=== PATIENT | male | born 1995 | race Caucasian/White ===

== ENCOUNTER 2023-06-28 07:08 | Emergency (ER) | payer SELFPAY ==
--- NOTE | ~2023-06-28 | CT_ITS ---
EXAMINATION: CT abdomen pelvis w con DATE: 06/28/2023 10:30 INDICATION: Left-sided abdominal pain TECHNIQUE: Computed tomography (CT) of the abdomen and pelvis was performed without intravenous contr ast. The dose-length product was 795.16 mGy-cm. Automated exposure control and iterative reconstructi on technique were employed. COMPARISON: None. FINDINGS: Lung bases are unremarkable. Heart size normal. No significant pleural or pericardial effus ion. There is a 2 mm left UVJ stone with moderate left hydronephrosis. There are additional nonobstru cting left renal stones. The liver, spleen, pancreas, adrenal glands and right kidney are unremarkable. Nonobstructive bowel g as pattern. No abnormal pelvic masses or fluid collections. No significant vascular abnormality. No l ymphadenopathy. No acute osseous abnormality. IMPRESSION: 1. 2 mm left UVJ stone with moderate hydronephrosis. 2: Nonobstructing left nephrolithiasis. Reviewed, dictated and finalized at location A. [employer]
[2023-06-28 07:13] VITALS: BP 141/82; PULSE 77; RESP 18; TEMP 36.7; O2SAT 100
[2023-06-28 07:35] LABS: Basophils Percent Auto 0.2 % (0.2-1.2); Eosinophils Absolute Auto 0.1 K/mm3 (0-0.3); Eosinophils Percent Auto 0.7 % (0-4.4); Hematocrit 44.6 % (42.0-52.0); Hemoglobin 14.7 g/dL (14.0-18.0); Immature Granulocyte Absolute 0.01 K/mm3 (0.00-0.031); Immature Granulocyte Percent A 0.1 % (0-0.5); Lymphocytes Absolute Auto 1.56 K/mm3 (0.9-3.2); Lymphocytes Percent Auto 17.6 % (18.3-44.2); Mean Corpuscular Hemoglobin 30.1 pg (26-34); Mean Corpuscular Volume 91.2 fl (80-100); Monocytes Absolute Auto 0.4 K/mm3 (0.1-0.6); Monocytes Percent Auto 4.6 % (2.6-8.5); Neutrophils Absolute Auto 6.8 K/mm3 (1.3-6.7); Neutrophils Percent Auto 76.8 % (45.5-73.1); Platelet Count Result 228 k/mm3 (150-375); Red Blood Count 4.89 M/mm3 (4.6-6.20); Red Cell Distribution Width 12.8 % (11.5-14.5); White Blood Count 8.9 K/mm3 (4.5-10.0)
[2023-06-28 07:48] LABS: Add Urine Microscopic? YES; Appearance Urine Cloudy (Clear); Bacteria Urine None Seen /hpf; Bilirubin Urine Negative (Negative); Blood Urine 3+ (Negative); Color Urine Dark Yellow (Yellow); Glucose Urine UA Negative (Negative); Ketones Urine Negative (Negative); Leukocyte Esterase Ur Negative LEU/UL (Negative); Mucus Urine Present /lpf; Need Manual Microscopic Reviewed; Nitrate Urine Negative (Negative); Protein Urine 1+ mg/dL (Negative); RBC Urine >100 /hpf (0-2); Specific Grav Ur 1.029 (1.001-1.035); Squamous Epithelial Cell Urine None seen /hpf (Few); WBC Urine 0-5 /hpf; pH Urine 5.5 (5.0-9.0)
[2023-06-28 08:02] LABS: Alanine Aminotransferase 18 U/L (6-50); Albumin Level 4.5 g/dL (3.5-5.1); Alkaline Phosphatase 53 U/L (38-126); Anion Gap 7 mmol/L (8-16); Aspartate Amino Transferase 17 U/L (17-59); Bilirubin,Total 0.5 mg/dL (0.2-1.3); Blood Urea Nitrogen 19 mg/dL (9-20); Calcium 9.5 mg/dL (8.4-10.2); Carbon Dioxide 24 mmol/L (22-30); Chloride 107 mmol/L (98-107); Estimated CRCL calculation 111 ml/min; Estimated Glomerular Filt Rate > 60; Glucose 113 mg/dL (65-110); Potassium 3.9 mmol/L (3.4-5.0); Sodium 138 mmol/L (137-145)
--- NOTE | 2023-06-28 09:50 | ED.ABDPAIN ---
HPI - Abdominal Pain General Chief Complaint: Abdominal Pain Stated Complaint: left flank pain Time Seen by Provider: 06/28/23 09:44 Source: patient Mode of arrival: ambulatory Limitations: no limitations History of Present Illness HPI narrative: This is a 28-year-old male that presents to the emergency department for left-sided abdominal pain. Ongoing since earlier this morning. Associated with nausea and vomiting. Reports history of kidney stones and that his pain feels similar. Denies fevers, dysuria, or hematuria. Related Data Allergies Allergy/AdvReac Type Severity Reaction Status Date / Time No Known Drug Allergies Allergy Verified 11/11/11 13:35 Review of Systems Review of Systems: CONSTITUTIONAL: Denies fever GASTROINTESTINAL: Reports abdominal pain, nausea, vomiting GENITOURINARY: Denies dysuria or hematuria. All systems reviewed & are unremarkable except as noted in HPI and below PMFSH Past Medical History Medical History (Updated 06/28/23 @ 11:05 by Radha Nathan PA-C) No active medical problems Social History Social History (Updated 06/28/23 @ 09:52 by Radha Nathan PA-C) Smoking status: Current every day smoker Exam Narrative: GENERAL: Well-appearing, well-nourished, and in no acute distress. HEAD: Normocephalic, atraumatic. EYES: EOMI. CHEST: Clear to auscultation. No respiratory distress. No wheezes rales or rhonchi HEART: Regular rate and rhythm. No murmur heard. Normal peripheral pulses. ABDOMEN: Soft, nontender, nondistended, normal active bowel sounds. No CVA tenderness EXTREMITIES: Normal range of motion. No edema. SKIN: Warm, dry, no rash. NEURO: No focal deficits. Alert and oriented x3. PSYCH: Normal mood and affect Course Course Emergency Course: Patient updated on workup and agrees with plan of care Vital Signs Vital signs: Vital Signs Temperature 98.1 F 06/28/23 07:13 Pulse Rate 77 06/28/23 07:13 Respiratory Rate 18 06/28/23 07:13 Blood Pressure 141/82 H 06/28/23 07:13 Pulse Oximetry 100 06/28/23 07:13 Oxygen Delivery Room Air 06/28/23 07:13 Temperature 98.1 F 06/28/23 07:13 Pulse Rate 71 02/24/24 10:11 Respiratory Rate 14 06/28/23 10:11 Blood Pressure 134/79 06/28/23 10:11 Pulse Oximetry 100 06/28/23 10:11 Oxygen Delivery Room Air 06/28/23 07:13 MDM - Abdominal Pain MDM Narrative Medical decision making narrative: Patient presents to the emergency department for left-sided abdominal pain, history of kidney stones. He is afebrile and nontoxic appearing. His vitals are stable. Cbc without leukocytosis. Metabolic panel with normal kidney function. UA with greater than 100 red blood cells, no evidence of infection. CT abdomen pelvis shows a 2 mm left UVJ stone. Patient updated on his workup. Pain is under control. Will be discharged with Flomax, pain medication, and urine strainer. He is to follow-up with urology. He was given warnings to return to the ER Differential Diagnosis Differential diagnosis: Likely calculus of kidney, constipation and diverticulitis Lab Data Attestation: I reviewed the patient's lab results. 06/28/23 07:22 06/28/23 07:22 Labs: Lab Results 06/28/23 06/28/23 Range/Units 07:22 07:28 WBC 8.9 (4.5-10.0) K/mm3 RBC 4.89 (4.6-6.20) M/mm3 Hgb 14.7 (14.0-18.0) g/dL Hct 44.6 (42.0-52.0) % MCV 91.2 (80-100) fl MCH 30.1 (26-34) pg MCHC 33.0 (32-36) g/dl RDW 12.8 (11.5-14.5) % Plt Count 228 (150-375) k/mm3 MPV 10.0 (7.4-10.4) fl Immature Gran % (Auto) 0.1 (0-0.5) % Neut % (Auto) 76.8 H (45.5-73.1) % Lymph % (Auto) 17.6 L (18.3-44.2) % [place] % (Auto) 4.6 (2.6-8.5) % Eos % (Auto) 0.7 (0-4.4) % Baso % (Auto) 0.2 (0.2-1.2) % Lymph # (Auto) 1.56 (0.9-3.2) K/mm3 [place] # (Auto) 0.4 (0.1-0.6) K/mm3 Eos # (Auto) 0.1 (0-0.3) K/mm3 Baso # (Auto) 0.0 (0.0-0.1) K/mm3 Abs Imm
[2023-06-28 10:11] VITALS: BP 134/79; PULSE 71; RESP 14; O2SAT 100
[2023-06-28] MEDS: ONDANSETRON INJ 4 MG/2 ML VIAL IV PUSH (10:16)
[2023-06-28] MEDS: SODIUM CHLORIDE 0.9% IV 1,000 ML 999 ML IV CONT (10:16)
[2023-06-28] MEDS: MORPHINE SULFATE (*CRX) 2 MG/ML INJ IV PUSH (10:17)
--- NOTE | 2023-06-28 10:18 | PC.NURSE ---
Pt to CT via stretcher at this time
[2023-06-28 11:47] VITALS: BP 151/83; PULSE 70; RESP 13; TEMP 36.4; O2SAT 99
== END 2023-06-28 11:42 | disposition home or self-care (01) ==
PROVIDERS: Emergency Medicine; Emergency Provider Physician Assistant
DX: N13.2 Hydronephrosis with renal and ureteral calculous obstruction (principal); F17.200 Nicotine dependence, unspecified, uncomplicated; Z87.442 Personal history of urinary calculi
CPT/HCPCS: 36415; 74177; 80053; 81001; 85025; 96361; 96374; 96375; 99284; J2270; J2405; J7030; Q9967

== ENCOUNTER 2023-09-21 22:23 | Emergency (ER) | payer OTHER, SELFPAY ==
[2023-09-21 22:24] VITALS: BP 160/97; PULSE 96; RESP 16; TEMP 36.9; O2SAT 100
[2023-09-22 00:24] VITALS: BP 149/93; PULSE 84; RESP 16; O2SAT 99
--- NOTE | 2023-09-22 00:44 | ED.SKABFB ---
HPI - Skin/Abscess/Foreign Bdy General Chief complaint: Skin/Abscess/Foreign Body Stated complaint: wasp sting Time Seen by Provider: 09/22/23 00:32 Source: patient Mode of arrival: ambulatory Limitations: no limitations History of Present Illness HPI narrative: This is a 28 year old male that presents to the ER after a recent insect sting. Reports he was stung by a wasp 2 days ago. Increasing redness to the area which prompted him to be seen. Reports some itching. Denies fever, or drainage. Related Data Allergies Allergy/AdvReac Type Severity Reaction Status Date / Time No Known Drug Allergies Allergy Verified 11/11/11 13:35 Review of Systems Review of Systems: CONSTITUTIONAL: Denies fever SKIN: Reports rash and itching. All systems reviewed & are unremarkable except as noted in HPI and below PMFSH Past Medical History Medical History (Updated 09/22/23 @ 00:47 by Radha Nathan PA-C) No active medical problems Social History Social History (Updated 06/28/23 @ 09:52 by Radha Nathan PA-C) Smoking status: Current every day smoker Exam Narrative: GENERAL: Well-appearing, well-nourished, and in no acute distress. HEAD: Normocephalic, atraumatic. EYES: EOMI. NECK: Small circular area of redness to the right neck. No edema or fluctuance CHEST: No respiratory distress. Small area of redness to the right chest HEART: Regular rate EXTREMITIES: Normal range of motion. No edema. SKIN: Warm, dry, no rash. NEURO: No focal deficits. Alert and oriented x3. PSYCH: Normal mood and affect Course Course Emergency Course: Patient agrees with plan of care Vital Signs Vital signs: Vital Signs Temperature 98.4 F 09/21/23 22:24 Pulse Rate 96 09/21/23 22:24 Respiratory Rate 16 09/21/23 22:24 Blood Pressure 160/97 H 09/21/23 22:24 Pulse Oximetry 100 09/21/23 22:24 Oxygen Delivery Room Air 09/21/23 22:24 Temperature 98.4 F 09/21/23 22:24 Pulse Rate 84 09/22/23 00:24 Respiratory Rate 16 09/22/23 00:24 Blood Pressure 149/93 H 09/22/23 00:24 Pulse Oximetry 99 09/22/23 00:24 Oxygen Delivery Room Air 09/21/23 22:24 MDM - Skin/Abscess/Foreign Bdy MDM Narrative Medical decision making narrative: Patient presents to the ER after a recent insect sting. Reports he was stung by a wasp 2 days ago. Increasing redness to the area which prompted him to be seen. He is afebrile and nontoxic appearing. Mild redness to the area of sting and additional area of redness to the right chest. Instructed on use of antihistamines. Will be started on oral antibiotic if possible secondary cellulitis. He is to follow up with PCP. He was given warnings to return to the ER Differential Diagnosis Differential diagnosis: Likely urticaria, cellulitis, insect bites and contact dermatitis Critical Care Time Critical Care Time Critical Care Time: No Discharge Plan Discharge Clinical Impression: Wasp sting Qualifiers: Encounter type: initial encounter Injury intent: accidental or unintentional Qualified Code(s): T63.461A - Toxic effect of venom of wasps, accidental (unintentional), initial encounter Patient Disposition: Home, Self-Care Condition: Stable Instructions: Antibiotic Form, Insect Bite or Sting (ED) Additional Instructions: Return to the emergency department if you experience fever, increasing redness and swelling, abnormal drainage, or any other symptoms that are concerning to you Take a Pepcid and Zyrtec daily. Benadryl as needed for severe itching. Take oral antibiotic as prescribed Follow-up with primary care doctor Prescriptions: New cephalexin 500 mg capsule 500 mg PO Q6H 5 Days Qty: 20 0RF No Action hydrocodone-acetaminophen 5-325 mg tablet 1 tablet PO Q8H PRN (Reason: pain) Qty: 20 0RF tamsulosin 0.4 mg capsule 0.4 mg PO DAILY 7 Days Qty: 7 0RF Follow-up/Referrals: Katia Mcclendon MD [Physician] - PHYSICIAN,[employer] [Primary Car
== END 2023-09-22 00:54 | disposition home or self-care (01) ==
PROVIDERS: Emergency Provider Physician Assistant
DX: T63.461A Toxic effect of venom of wasps, accidental (unintentional), initial encounter (principal); L29.9 Pruritus, unspecified; F17.210 Nicotine dependence, cigarettes, uncomplicated
CPT/HCPCS: 99283

== ENCOUNTER 2024-12-22 12:53 | Observation (INO) | payer SELFPAY ==
--- NOTE | ~2024-12-22 | XR_ITS ---
EXAMINATION: XR abdomen/kub 1V DATE: 12/22/2024 16:17 INDICATION: Kidney stone TECHNIQUE: A supine view of the abdomen on 2 radiographs was obtained. COMPARISON: CT abdomen and pelvis 12/22/2024 FINDINGS: Lung bases are clear. Small amount of air and stool in nondilated large bowel. There are a few less than 1.0 cm calcifications projecting over the pelvis which may represent phleboliths, however, a distal ureteral stone or bladder stone or possible. IMPRESSION: 1. Nonspecific abdomen. 2. There are a few less than 1.0 cm calcifications projecting over the pelvis which may represent phleboliths, however, a distal ureteral stone or bladder stone or possible. If symptoms persist or worsen, consider a short-term follow-up study or additional imaging for further assessment. Reviewed, dictated and finalized at location A. IMPRESSION: 1. Nonspecific abdomen. 2. There are a few less than 1.0 cm calcifications projecting over the pelvis w hich may represent phleboliths, however, a distal ureteral stone or bladder sto ne or possible. If symptoms persist or worsen, consider a short-term follow-up study or additio nal imaging for further assessment.
--- NOTE | ~2024-12-22 | CT_ITS ---
EXAMINATION: CT abdomen pelvis wo con DATE: 12/22/2024 15:03 INDICATION: Abdominal pain. History of stones TECHNIQUE: Computed tomography (CT) of the abdomen and pelvis was performed without intravenous contrast. The dose-length product was 1430.14 mGy-cm. COMPARISON: 06/28/2023 FINDINGS: Stable 4 mm pulmonary nodule in the right middle lobe. Liver, spleen, adrenal glands, pancreas and gallbladder are unremarkable. Right kidney is unremarkable. Mild left-sided hydronephrosis secondary to a 5 mm calcification in the distal left ureter about the left ureterovesicular junction. Abdominal aorta is not aneurysmal. No enlarged lymph nodes in the abdomen. No free fluid in the abdomen. No enlarged lymph nodes in the pelvis. No bladder calculi. No free fluid in the pelvis. No dilated bowel loops. No colitis. There are a few less than 3 mm nonobstructive bilateral renal stones. No appendicitis. IMPRESSION: 1. Mild left-sided hydronephrosis secondary to a 5 mm calcification in the distal left ureter about the left ureterovesicular junction. 2. Bilateral nonobstructing renal stones. 3. Stable 4 mm pulmonary nodule in the right middle lobe. A chest CT is recommended. Reviewed, dictated and finalized at location A. IMPRESSION: 1. Mild left-sided hydronephrosis secondary to a 5 mm calcification in the dist al left ureter about the left ureterovesicular junction. 2. Bilateral nonobstructing renal stones. 3. Stable 4 mm pulmonary nodule in the right middle lobe. A chest CT is recomme nded.
--- NOTE | ~2024-12-22 | XR_ITS ---
XR fluoroscopy no charge Indication: Cystoscopy, stone extraction TECHNIQUE: Fluoroscopy used during Cystoscopy, stone extraction performed by [Emiliano Oliveira MD] on 12/23/2024. 7 seconds of fluoroscopy time with 3 fluoroscopic images captured. FINDINGS: Correlate with procedure note. IMPRESSION: Fluoroscopy used during Cystoscopy, stone extraction. Reviewed, dictated and finalized at location O.
[2024-12-22 13:39] VITALS: BP 156/102; PULSE 90; RESP 16; TEMP 36.7; O2SAT 98
--- NOTE | 2024-12-22 14:03 | PC.NURSE ---
Patient now reporting increasing nausea with urge to vomit
--- NOTE | 2024-12-22 14:51 | ED.MALEGU ---
HPI - Male Genitourinary General Chief complaint: Urogenital-Male <Radha Nathan PA-C - Last Filed: 12/24/24 09:11> Stated complaint: RLQ pain-very dark urine-kidney stone Hx <Radha Nathan PA-C - Last Filed: 12/24/24 09:11> Time Seen by Provider: 12/22/24 14:51 <Radha Nathan PA-C - Last Filed: 12/24/24 09:11> Focused HPI: This is a 29 year old male that presents to the ER for left abdominal pain. Reports history of kidney stones. Reports hematuria. Denies dysuria. GENERAL: Uncomfortable, well-nourished, and in no acute distress. HEAD: Normocephalic, atraumatic. CHEST: Clear to auscultation. ?No respiratory distress. HEART: Regular rate and rhythm.? NEURO: ?Alert and oriented x3. Patient screened in triage and initial orders placed.? ?Additional care and disposition to be based upon?diagnostic testing and treatment. <Radha Nathan PA-C - Last Filed: 12/24/24 09:11> History of Present Illness HPI Narrative: Patient 29-year-old gentleman presents emergency department chief complaint of left flank pain. Patient reports he has prior history of kidney stones reports he has been very uncomfortable reports that he has been working out a sweat with the discomfort. Patient reports feels similar to whenever he has had kidney stones patient does report that he has been able to pass his stones in past <Rajesh Michelle MD - Last Filed: 12/22/24 18:09> Related Data Home medications: Home Medications ?Medication ?Instructions ?Recorded ?Confirmed ?Last Taken ?Type No Home Medications 12/22/24 12/22/24 Unknown History <Radha Nathan PA-C - Last Filed: 12/24/24 09:11> Allergies/Adverse reactions: Allergies Allergy/AdvReac Type Severity Reaction Status Date / Time No Known Allergies Allergy Verified 12/23/24 12:10 <Radha Nathan PA-C - Last Filed: 12/24/24 09:11> Review of Systems Review of Systems: A 10 system review of systems was completed on the patient and is negative except for what is stated in the HPI. Nursing and ancillary documentation was reviewed. <Rajesh Michelle MD - Last Filed: 12/22/24 18:09> PMFSH Past Medical History Medical History: Medical History Kidney stones <Radha Nathan PA-C - Last Filed: 12/24/24 09:11> Social History Social History: Social History (Updated 12/23/24 @ 12:29 by Hudson Hathaway DO) Smoking packs per day: 1 Smoking cigarettes per day: 20.0 Years smoked: 20 Smoking pack-years: 20.00 Smoking status: Current every day smoker Tobacco type: cigarettes Second hand tobacco smoke exposure: Yes Alcohol intake: former Substance use: current Substance use type: marijuana Other substance usage details: daily Last use: 12/21/24 Lack of Transportation: No Lack of Food: Never True Current Housing: I Have Housing Concerned About Future Housing: No Difficulty Paying Gas/Electric Bills: No Difficulty Paying for Meds: No Currently Unemployed: No Education: Decline to Answer Difficulty w/ Childcare or Family Care: No Spiritual care concerns: No <Radha Nathan PA-C - Last Filed: 12/24/24 09:11> Exam Narrative: GENERAL: Well-appearing, well-nourished, and in moderate acute paindistress. HEAD: Normocephalic, atraumatic. EYES: PERRLA and EOMI. ENT: Nares clear, no rhinorrhea or epistaxis. Mucous membranes moist. NECK: Supple. CHEST: Clear to auscultation. No respiratory distress. HEART: Regular rate and rhythm. No murmur heard. Normal peripheral pulses. ABDOMEN: Soft, nontender, nondistended, normal active bowel sounds. EXTREMITIES: Normal range of motion. No edema. SKIN: Warm, dry, no rash. NEURO: No focal deficits. Alert and oriented x3. PSYCH: Normal mood and affect. <Rajesh Michelle MD - Last Filed: 12/22/24 18:09> Course Vital Signs Vital signs: Vital Signs Temperature 98.1 F 12/22/24 13:39 Pulse Rate 90 12/22/24 13:39 Respiratory Rate 16 12/22/24 13:39 Blood Pressure 156/102 H 12/22/24 13:39 Pulse Oximetry 98 12/22/24 13:39 Oxygen Delivery Room Air 12/22/24 13:39 Temperature 97.8 F 12/24/24 06:00 Pulse Rate 74 12/24/24 06:00 Respiratory Rate 20 12/24/24 06:00 Blood Pressure 147/79 H 12/24/24 06:00 Pulse Oximetry 98 12/24/24 06:00 Oxygen Delivery Room Air 12/23/24 20:00 Oxygen Flow Rate 10 12/23/24 13:03 <Radha Nathan PA-C - Last Filed: 12/24/24 09:11> Vital Signs Temperature 98.1 F 12/22/24 13:39 Pulse Rate 90 12/22/24 13:39 Respiratory Rate 16 12/22/24 13:39 Blood Pressure 156/102 H 12/22/24 13:39 Pulse Oximetry 98 12/22/24 13:39 Oxygen Delivery Room Air 12/22/24 13:39 Temperature 97.8 F 12/24/24 06:00 Pulse Rate 74 12/24/24 06:00 Respiratory Rate 20 12/24/24 06:00 Blood Pressure 147/79 H 12/24/24 06:00 Pulse Oximetry 98 12/24/24 06:00 Oxygen Delivery Room Air 12/23/24 20:00 Oxygen Flow Rate 10 12/23/24 13:03 <Rajesh Michelle MD - Last Filed: 12/22/24 18:09> MDM - Male Genitourinary Lab Data Result diagrams: 12/24/24 04:23 12/24/24 04:23 <Radha Nathan PA-C - Last Filed: 12/24/24 09:11> Labs: Lab Results 12/22/24 Range/Units 15:15 WBC 14.1 H (4.5-10.0) K/mm3 RBC 5.35 (4.6-6.20) M/mm3 Hgb 16.2 (14.0-18.0) g/dL Hct 47.0 (42.0-52.0) % MCV 87.9 (80-100) fl MCH 30.3 (26-34) pg MCHC 34.5 (32-36) g/dl RDW 12.4 (11.5-14.5) % Plt Count 270 (150-375) k/mm3 MPV 10.4 (7.4-10.4) fl Immature Gran % (Auto) 0.4 (0-0.5) % Neut % (Auto) 84.1 H (45.5-73.1) % Lymph % (Auto) 11.2 L (18.3-44.2) % [place] % (Auto) 4.2 (2.6-8.5) % Eos % (Auto) 0.0 (0-4.4) % Baso % (Auto) 0.1 L (0.2-1.2) % Lymph # (Auto) 1.59 (0.9-3.2) K/mm3 [place] # (Auto) 0.6 (0.1-0.6) K/mm3 Eos # (Auto) 0.0 (0-0.3) K/mm3 Baso # (Auto) 0.0 (0.0-0.1) K/mm3 Abs Immat Gran (auto) 0.05 H (0.00-0.031) K/mm3 Absolute Neuts (auto) 11.9 H (1.3-6.7) K/mm3 Absolute Nucleated RBC 0.000 (0.0-0.012) K/mm3 Nucleated RBC % 0.0 (0.0-0.2) % Sodium 137 (137-145) mmol/L Potassium 3.8 (3.4-5.0) mmol/L Chloride 104 (98-107) mmol/L Carbon Dioxide 19 L (22-30) mmol/L Anion Gap 14 H (4-12) mmol/L BUN 15 (9-20) mg/dL Creatinine 1.13 (0.7-1.3) mg/dL Estim Creat Clear Calc 106 ml/min Estimated GFR > 60 (59 - ) Glucose 132 H (65-110) mg/dL Calcium 10.1 (8.4-10.2) mg/dL Total Bilirubin 0.8 (0.2-1.3) mg/dL AST 36 (17-59) U/L ALT 37 (6-50) U/L Alkaline Phosphatase 71 (38-126) U/L Total Protein 9.1 H (6.3-8.2) g/dL Albumin 5.2 H (3.5-5.1) g/dL Lipase 134 (23-300) U/L Urine Color [place] H (Yellow) Urine Appearance Turbid H (Clear) Urine pH 5.5 (5.0-9.0) Ur Specific [place] 1.035 (1.001-1.035) Urine Protein 2+ H (Negative) mg/dL Urine Glucose (UA) Negative (Negative) mg/dL Urine Ketones 1+ H (Negative) mg/dL Ur Blood (Man) 2+ H (Negative) Urine Nitrate Positive H (Negative) Urine Bilirubin 2+ H (Negative) Urine Urobilinogen 1.0 (<2.0) mg/dL Add Ur Microanalysis Reviewed Leukocyte Esterase Rfl 2+ H (Negative) HINA/UL Urine RBC >100 H (0-2) /hpf Urine WBC 21-50 H (0-3) /hpf Ur Squamous Epith Cells Occasional (Few) /hpf Calcium Oxalate Crystal Present (None) /hpf Urine Bacteria None seen /hpf Urine Casts 3-5 <Radha Nathan PA-C - Last Filed: 12/24/24 09:11> Lab Results 12/22/24 Range/Units 15:15 WBC 14.1 H (4.5-10.0) K/mm3 RBC 5.35 (4.6-6.20) M/mm3 Hgb 16.2 (14.0-18.0) g/dL Hct 47.0 (42.0-52.0) % MCV 87.9 (80-100) fl MCH 30.3 (26-34) pg MCHC 34.5 (32-36) g/dl RDW 12.4 (11.5-14.5) % Plt Count 270 (150-375) k/mm3 MPV 10.4 (7.4-10.4) fl Immature Gran % (Auto) 0.4 (0-0.5) % Neut % (Auto) 84.1 H (45.5-73.1) % Lymph % (Auto) 11.2 L (18.3-44.2) % [place] % (Auto) 4.2 (2.6-8.5) % Eos % (Auto) 0.0 (0-4.4) % Baso % (Auto) 0.1 L (0.2-1.2) % Lymph # (Auto) 1.59 (0.9-3.2) K/mm3 [place] # (Auto) 0.6 (0.1-0.6) K/mm3 Eos # (Auto) 0.0 (0-0.3) K/mm3 Baso # (Auto) 0.0 (0.0-0.1) K/mm3 Abs Immat Gran (auto) 0.05 H (0.00-0.031) K/mm3 Absolute Neuts (auto) 11.9 H (1.3-6.7) K/mm3 Absolute Nucleated RBC 0.000 (0.0-0.012) K/mm3 Nucleated RBC % 0.0 (0.0-0.2) % Sodium 137 (137-145) mmol/L Potassium 3.8 (3.4-5.0) mmol/L Chloride 104 (98-107) mmol/L Carbon Dioxide 19 L (22-30) mmol/L Anion Gap 14 H (4-12) mmol/L BUN 15 (9-20) mg/dL Creatinine 1.13 (0.7-1.3) mg/dL Estim Creat Clear Calc 106 ml/min Estimated GFR > 60 (59 - ) Glucose 132 H (65-110) mg/dL Calcium 10.1 (8.4-10.2) mg/dL Total Bilirubin 0.8 (0.2-1.3) mg/dL AST 36 (17-59) U/L ALT 37 (6-50) U/L Alkaline Phosphatase 71 (38-126) U/L Total Protein 9.1 H (6.3-8.2) g/dL Albumin 5.2 H (3.5-5.1) g/dL Lipase 134 (23-300) U/L Urine Color [place] H (Yellow) Urine Appearance Turbid H (Clear) Urine pH 5.5 (5.0-9.0) Ur Specific [place] 1.035 (1.001-1.035) Urine Protein 2+ H (Negative) mg/dL Urine Glucose (UA) Negative (Negative) mg/dL Urine Ketones 1+ H (Negative) mg/dL Ur Blood (Man) 2+ H (Negative) Urine Nitrate Positive H (Negative) Urine Bilirubin 2+ H (Negative) Urine Urobilinogen 1.0 (<2.0) mg/dL Add Ur Microanalysis Reviewed Leukocyte Esterase Rfl 2+ H (Negative) HINA/UL Urine RBC >100 H (0-2) /hpf Urine WBC 21-50 H (0-3) /hpf Ur Squamous Epith Cells Occasional (Few) /hpf Calcium Oxalate Crystal Present (None) /hpf Urine Bacteria None seen /hpf Urine Casts 3-5 <Rajesh Michelle MD - Last Filed: 12/22/24 18:09> Imaging Data Radiologist's impression: ITS Impressions Abdomen/Pelvis CT 12/22/24 15:10 IMPRESSION: 1. Mild left-sided hydronephrosis secondary to a 5 mm calcification in the distal left ureter about the left ureterovesicular junction. 2. Bilateral nonobstructing renal stones. 3. Stable 4 mm pulmonary nodule in the right middle lobe. A chest CT is recommended. Abdomen X-Ray 12/22/24 16:24 IMPRESSION: 1. Nonspecific abdomen. 2. There are a few less than 1.0 cm calcifications projecting over the pelvis which may represent phleboliths, however, a distal ureteral stone or bladder stone or possible. If symptoms persist or worsen, consider a short-term follow-up study or additional imaging for further assessment. <Radha Nathan PA-C - Last Filed: 12/24/24 09:11> Critical Care Time Critical Care Time Critical Care Time: No <Radha Nathan PA-C - Last Filed: 12/24/24 09:11> Discharge Plan Discharge Clinical Impression: Ureteral calculus, left UTI (urinary tract infection) Qualifiers: Urinary tract infection type: acute cystitis Hematuria presence: with hematuria Qualified Code(s): N30.01 - Acute cystitis with hematuria <Radha Nathan PA-C - Last Filed: 12/24/24 09:11> Patient Disposition: Still a Patient <Radha Nathan PA-C - Last Filed: 12/24/24 09:11> Condition: Stable <Radha Nathan PA-C - Last Filed: 12/24/24 09:11> Time of Disposition: 18:09 <Radha Nathan PA-C - Last Filed: 12/24/24 09:11> 18:09 <Rajesh Michelle MD - Last Filed: 12/22/24 18:09>
[2024-12-22 15:28] LABS: Hematocrit 47.0 % (42.0-52.0); Hemoglobin 16.2 g/dL (14.0-18.0); Immature Granulocyte Percent A 0.4 % (0-0.5); Lymphocytes Absolute Auto 1.59 K/mm3 (0.9-3.2); Mean Corpuscular HGB Conc 34.5 g/dl (32-36); Mean Corpuscular Hemoglobin 30.3 pg (26-34); Mean Corpuscular Volume 87.9 fl (80-100); Nucleated Red Blood Cells Absolute Auto 0.000 K/mm3 (0.0-0.012); Nucleated Red Blood Cells Perc 0.0 % (0.0-0.2); Platelet Count Result 270 k/mm3 (150-375); Red Blood Count 5.35 M/mm3 (4.6-6.20); White Blood Count 14.1 K/mm3 (4.5-10.0)
[2024-12-22 15:30] LABS: Need Manual Microscopic Reviewed
[2024-12-22 15:33] LABS: Alanine Aminotransferase 37 U/L (6-50); Albumin Level 5.2 g/dL (3.5-5.1); Alkaline Phosphatase 71 U/L (38-126); Anion Gap 14 mmol/L (4-12); Aspartate Amino Transferase 36 U/L (17-59); Bilirubin,Total 0.8 mg/dL (0.2-1.3); Blood Urea Nitrogen 15 mg/dL (9-20); Calcium 10.1 mg/dL (8.4-10.2); Carbon Dioxide 19 mmol/L (22-30); Chloride 104 mmol/L (98-107); Estimated CRCL calculation 106 ml/min; Estimated Glomerular Filt Rate > 60; Glucose 132 mg/dL (65-110); Lipase 134 U/L (23-300); Potassium 3.8 mmol/L (3.4-5.0); Sodium 137 mmol/L (137-145); Total Protein 9.1 g/dL (6.3-8.2)
[2024-12-22 15:38] LABS: Add Urine Microscopic? YES; Appearance Urine Turbid (Clear); Glucose Urine UA Negative (Negative); Leukocyte Esterase Ur 2+ LEU/UL (Negative); Nitrate Urine Positive (Negative); Specific Grav Ur 1.035 (1.001-1.035)
[2024-12-22] MEDS: MORPHINE SULFATE (*CRX) 4 MG/ML INJ IV PUSH (15:43)
[2024-12-22] MEDS: ONDANSETRON INJ 4 MG/2 ML VIAL IV PUSH (15:44)
[2024-12-22] MEDS: SODIUM CHLORIDE 0.9% IV 1,000 ML 999 ML IV CONT (16:05)
[2024-12-22] MEDS: TAMSULOSIN HCL 0.4 MG CAPSULE PO (16:05)
--- NOTE | 2024-12-22 16:15 | P.CONUR_ITS ---
Assessment and Plan Assessment and plan (1) Ureteral calculus, left: Code(s): N20.1 - Calculus of ureter Status: Acute (2) UTI (urinary tract infection): Code(s): N39.0 - Urinary tract infection, site not specified Status: Acute Plan 29y old male with 5mm left distal ureteral stone with mild hydro. (intractable pain) -admit to hospitalist -CT AP reveals Mild left-sided hydronephrosis secondary to a 5 mm calcification in the distal left ureter about the left ureterovesicular junction. -WBC 14.1 -UA suspicious for infection. culture pending. agree with empiric antibiotics per primary service. culture driven antibiotics when resulted. -cr 1.13 -unable to add on for today for cysto,L ureteral stent. -npo after midnight -obtain KUB -Reviewed surgical plan with patient including risks and outpatient follow up. Patient is aware of stent placement and follow up for definitive stone management after resolution of infection. He is also aware of stent follow up. Risks discussed include but not limited to infection, bleeding, damage to surrounding structures, and . Patient consents to move forward with surgery. -Plan for cystoscopy, Left ureteral stent tomorrow with Dr. Oliveira. He has been added on with OR already. Urology Consult Note HPI Date Seen: 12/22/24 Primary Care Provider: [employer] PHYSICIAN Consult Narrative Narrative: Parag Espinoza is a 29 year old male This is a 29 year old male that presents to the ER for left abdominal pain. Reports history of kidney stones. Reports hematuria. Denies dysuria Review of Systems 2 Review of Systems: All systems reviewed & are unremarkable except as noted in HPI and below PMFSH Past Medical History Medical History No active medical problems Social History Social History Smoking status: Current every day smoker Meds Home Medications and Allergies Home Medications ?Medication ?Instructions ?Recorded ?Confirmed ?Type hydrocodone 5 mg-acetaminophen 325 1 tablet PO Q8H PRN pain #20 tabs 06/28/23 Rx mg tablet tamsulosin 0.4 mg capsule 0.4 mg PO DAILY 1 week #7 ca ps 06/28/23 Rx cephalexin 500 mg capsule 500 mg PO Q6H 5 days #20 cap s 09/22/23 Rx Allergies Allergy/AdvReac Type Severity Reaction Status Date / Time No Known Allergies Allergy Verified 12/22/24 12:54 Vital Signs Vital Signs - 24 hr 12/22/24 13:39 Temperature 98.1 F Pulse Rate 90 Respiratory Rate 16 Blood Pressure 156/102 H Pulse Oximetry 98 Oxygen Delivery Room Air Exam 2 Const: General: uncomfortable Other: sweating with pain HENMT: Face/Nose/Sinus: Normal nares present Eyes: General: appearance normal, both eyes and all related structures Resp: Effort & Inspection: normal respiratory effort Skin: General skin exam: normal color Neuro: Speech: normal speech Psych: Speech and movement: Normal speech and movement present Results Labs 12/22/24 15:15 12/22/24 15:15 Labs: Short CBC 12/22/24 Range/Units 15:15 WBC 14.1 H (4.5-10.0) K/mm3 Hgb 16.2 (14.0-18.0) g/dL Hct 47.0 (42.0-52.0) % Plt Count 270 (150-375) k/mm3 BMP 12/22/24 15:15 Sodium 137 Potassium 3.8 Chloride 104 Carbon Dioxide 19 L BUN 15 Creatinine 1.13 Glucose 132 H Calcium 10.1 Liver Function 12/22/24 Range/Units 15:15 Total Bilirubin 0.8 (0.2-1.3) mg/dL AST 36 (17-59) U/L ALT 37 (6-50) U/L Alkaline Phosphatase 71 (38-126) U/L Albumin 5.2 H (3.5-5.1) g/dL Urine 12/22/24 Range/Units 15:15 Urine Color [place] H (Yellow) Urine Appearance Turbid H (Clear) Urine pH 5.5 (5.0-9.0) Ur Specific [place] 1.035 (1.001-1.035) Urine Protein 2+ H (Negative) mg/dL Urine Glucose (UA) Negative (Negative) mg/dL
--- NOTE | 2024-12-22 17:13 | P.HP_ITS ---
H&P: HPI History of Present Illness Date/Time: 12/22/24 17:13 Chief Complaint: Flank Pain Narrative: 29 y/o M with PMH of kidney stones presents here with flank pain. The patient presents here from home on 12/22 for further evaluation flank pain. He reports onset of left-sided flank pain and left-sided abdominal pain at 12:00 p.m. today. He describes the pain as sharp, constant, with no modifying factors . He reports accompanying hematuria and some urinary hesitancy. He denies dysuria, nausea, vomiting, fever, chills, body aches. He has past medical history significant for kidney stones. Initial VS at presentation: 98.1? F, HR 90, RR 16, 156/102, and 98% on RA. ED workup showed: WBC 14.1, no anemia, no significant electrolyte derangements, creatinine 1.13 and GFR >60, glucose 132, albumin 5.2, and UA consistent with UTI (few epithelial cells noted). CT of the abdomen/pelvis showed mild left- sided hydronephrosis secondary to a 5 mm calcification in the distal left ureter about the left ureteral vesicular junction, bilateral nonobstructing renal stones, stable 4 mm pulmonary nodule in the right middle lobe. Abdominal XR was nonspecific and there are a few less than 1 cm calcifications projecting over the pelvis which may represent phleboliths, however a distal ureteral stone or bladder stone is possible. Review of Systems Review of Systems: All systems reviewed & are unremarkable except as noted in HPI and below PMFSH Past Medical History Medical History Kidney stones Social History Social History Smoking status: Current every day smoker Meds Home Medications and Allergies Home Medications ?Medication ?Instructions ?Recorded ?Confirmed ?Type hydrocodone 5 mg-acetaminophen 325 1 tablet PO Q8H PRN pain #20 tabs 06/28/23 Rx mg tablet tamsulosin 0.4 mg capsule 0.4 mg PO DAILY 1 week #7 ca ps 06/28/23 Rx cephalexin 500 mg capsule 500 mg PO Q6H 5 days #20 cap s 09/22/23 Rx Allergies Allergy/AdvReac Type Severity Reaction Status Date / Time No Known Allergies Allergy Verified 12/22/24 12:54 Vital Signs Vital Signs - 24 hr 12/22/24 13:39 Temperature 98.1 F Pulse Rate 90 Respiratory Rate 16 Blood Pressure 156/102 H Pulse Oximetry 98 Oxygen Delivery Room Air Exam Const: General: no acute distress and uncomfortable Other: , male, nontoxic appearance HENMT: Face/Nose/Sinus: Normal nares present Mouth: Yes moist mucous membranes Eyes: General: appearance normal, both eyes and all related structures Sclera: sclerae normal Pupils: Equal, round and reactive pupils present EOM: EOMs intact bilaterally Resp: Effort & Inspection: normal respiratory effort Auscultation: clear to auscultation bilaterally Cardio: Rate: regular rate Rhythm: regular rhythm Other: S1-S2 present without murmur, rub, ectopy GI: Other: Tenderness in the left lower quadrant. Abdomen otherwise soft and nondistended. Normoactive bowel sounds in all quadrants. Skin: General skin exam: normal color and no rashes or lesions noted Wounds: no wounds Neuro: Speech: normal speech Motor exam (neuro): 5/5 motor strength present throughout Sensory Exam: normal sensation Other: A&O x4 Extrem: General: normal to inspection Psych: Mental Status: mental status grossly normal Affect: normal affect Other: Good insight and judgment. H&P: Results Labs Labs: Short CBC 12/22/24 Range/Units 15:15 WBC 14.1 H (4.5-10.0) K/mm3 Hgb 16.2 (14.0-18.0) g/dL Hct 47.0 (42.0-52.0) % Plt Count 270 (150-375) k/mm3 BMP 12/22/24 15:15 Sodium 137 Potassium 3.8 Chloride 104 Carbon Dioxide 19 L BUN 15 Creatinine 1.13 Glucose 132 H Calcium 10.1 Liver Function 12/22/24 Range/Units 15:15 Total Bilirubin 0.8 (0.2-1.3) mg/dL AST 36 (17-59) U/L ALT 37 (6-50) U/L Alkaline Phosphatase 71 (38-126) U/L Albumin 5.2 H (3.5-5.1) g/dL Urine 12/22/24 Range/Units 15:15 Urine Color [place] H (Yellow) Urine Appearance Turbid H (Clear) Urine pH 5.5 (5.0-9.0) Ur Specific [place] 1.035 (1.001-1.035) Urine Protein 2+ H (Negative) mg/dL Urine Glucose (UA) Negative (Negative) mg/dL Assessment and Plan Assessment and plan (1) Ureteral calculus, left: Code(s): N20.1 - Calculus of ureter Status: Acute Assessment and Plan: 12/22 * CT abdomen/pelvis: 1. Mild left-sided hydronephrosis secondary to a 5 mm calcification in the distal left ureter about the left ureterovesicular junction. 2. Bilateral nonobstructing renal stones. 3. Stable 4 mm pulmonary nodule in the right middle lobe. A chest CT is recommended. * Abdomen XR: 1. Nonspecific abdomen. 2. There are a few less than 1.0 cm calcifications projecting over the pelvis which may represent phleboliths, however, a distal ureteral stone or bladder stone or possible. - urology consulted ->> UA suspicious for infection, started broad-spectrum ABX Unable to be added on for a cystogram/stent placement this evening, will make NPO at midnight and cystogram tomorrow on 12/22 - analgesics p.r.n. and antiemetic p.r.n. - IV fluids: 1L bolus -> 125 mL/hr - trend renal function white count - strain urine - started on Flomax in the ED, continue (2) UTI (urinary tract infection): Qualifiers: Hematuria presence: with hematuria Urinary tract infection type: acute cystitis Qualified Code(s): N30.01 - Acute cystitis with hematuria Code(s): N39.0 - Urinary tract infection, site not specified Status: Acute Assessment and Plan: - UA: [place], turbid, 2+ protein, 1+ ketones, 2+ blood, positive nitrates, 2+ bilirubin, 2+ leuk esterase, greater than 100 RBC, 21-50 WBC, occasional epithelial cells, no bacteria. Calcium oxalate crystals present. - UC pending - no previous micro available for review - started on Ceftriaxone on 12/22 Plan Diet: Regular, NPO midnight GI Prophylaxis: n/a DVT Prophylaxis: SCDs IV fluids: 1L bolus -> 125 mL/hr Lines/Tubes: Peripheral IV Code Status: Full code Quality VTE Prophylaxis VTE prophylaxis: mechanical ordered Hospitalist MIPS Advance Care Plan I have confirmed that the patient's Advanced Care Plan is present, code status is documented, or surrogate decision maker is listed in patient medical record.: Yes Medication Reconciliation I have utilized all available resources to obtain, update and review the patients current medications (includes all prescriptions, OTC, herbals, cannabis, and nutritional supplements).: Yes
[2024-12-22 19:33] VITALS: BP 152/80; PULSE 65; RESP 17; TEMP 36.8; O2SAT 99
[2024-12-22 19:41] VITALS: BMI 39.5
[2024-12-22] MEDS: SODIUM CHLORIDE 0.9% IV 1,000 ML 125 ML IV CONT (19:50)
[2024-12-22] MEDS: HYDROmorphone HCL INJ (*CRX) 1 MG/ML SYR 0.5 MG IV PUSH (19:52)
[2024-12-22 20:04] VITALS: PULSE 62; O2SAT 98
[2024-12-22] MEDS: HYDROcodone/acetaminophen (*CRX) 5-325 MG TABLET 1 TAB PO (23:28)
[2024-12-23] VITALS (11 sets, daily range): BP systolic 101–151; BP diastolic 54–84; PULSE 55–89; RESP 16–20; TEMP 36.2–36.8; O2SAT 95–99
[2024-12-23] MEDS: SODIUM CHLORIDE 0.9% IV 1,000 ML 125 ML IV CONT ×2 (03:50→16:16)
[2024-12-23] MEDS: HYDROcodone/acetaminophen (*CRX) 5-325 MG TABLET 1 TAB PO ×3 (03:51→23:25)
--- NOTE | 2024-12-23 03:53 | PC.NURSE ---
Leigh MARIE notified pt has only had x2 50ml voids and post-void bladder scan shows 0ml retained. Draw 0500 labs now, continue to monitor, no further orders.
[2024-12-23 04:00] LABS: Hematocrit 43.3 % (42.0-52.0); Hemoglobin 14.8 g/dL (14.0-18.0); Immature Granulocyte Percent A 0.3 % (0-0.5); Lymphocytes Absolute Auto 1.33 K/mm3 (0.9-3.2); Mean Corpuscular HGB Conc 34.2 g/dl (32-36); Mean Corpuscular Hemoglobin 30.3 pg (26-34); Mean Corpuscular Volume 88.7 fl (80-100); Nucleated Red Blood Cells Absolute Auto 0.000 K/mm3 (0.0-0.012); Nucleated Red Blood Cells Perc 0.0 % (0.0-0.2); Platelet Count Result 213 k/mm3 (150-375); Red Blood Count 4.88 M/mm3 (4.6-6.20); White Blood Count 13.4 K/mm3 (4.5-10.0)
[2024-12-23 04:34] LABS: Anion Gap 12 mmol/L (4-12); Blood Urea Nitrogen 18 mg/dL (9-20); Calcium 9.4 mg/dL (8.4-10.2); Carbon Dioxide 19 mmol/L (22-30); Chloride 103 mmol/L (98-107); Estimated CRCL calculation 83 ml/min; Estimated Glomerular Filt Rate 57; Glucose 113 mg/dL (65-110); Potassium 3.9 mmol/L (3.4-5.0); Sodium 134 mmol/L (137-145)
[2024-12-23] MEDS: ONDANSETRON INJ 4 MG/2 ML VIAL IV PUSH (04:42)
[2024-12-23] MEDS: SODIUM CHLORIDE 0.9% IV 1,000 ML 999 ML IV CONT (04:42)
--- NOTE | 2024-12-23 06:17 | WPDHPUPDATE1 ---
History and Physical Update Update Date/Time: 12/23/24 06:17 History and Physical has been reviewed, including an updated exam of the patient. There are NO changes in the patient's condition. Risks, benefits, and alternatives have been discussed and questions answered. Patient agrees to proceed with procedure.
[2024-12-23] MEDS: HYDROmorphone HCL INJ (*CRX) 1 MG/ML SYR 0.5 MG IV PUSH ×2 (06:42→10:34)
--- NOTE | 2024-12-23 07:14 | P.PNIM_ITS ---
Progress Note: A&P Assessment and Plan (1) Ureteral calculus, left: Code(s): N20.1 - Calculus of ureter Status: Acute Assessment and Plan: -CT abdomen/pelvis: 1. Mild left-sided hydronephrosis secondary to a 5 mm calcification in the distal left ureter about the left ureterovesicular junction. 2. Bilateral nonobstructing renal stones. 3. Stable 4 mm pulmonary nodule in the right middle lobe. A chest CT is recommended. * Abdomen XR: 1. Nonspecific abdomen. 2. There are a few less than 1.0 cm calcifications projecting over the pelvis which may represent phleboliths, however, a distal ureteral stone or bladder stone or possible. - urology consulted, planning for OR for stent placement today - UA infectious. Continue IV Rocephin, urine culture pending - analgesics p.r.n. and antiemetic p.r.n. - IV fluids: 1L bolus -> 125 mL/hr - trend renal function white count - strain urine - started on Flomax in the ED, continue (2) UTI (urinary tract infection): Qualifiers: Hematuria presence: with hematuria Urinary tract infection type: acute cystitis Qualified Code(s): N30.01 - Acute cystitis with hematuria Code(s): N39.0 - Urinary tract infection, site not specified Status: Acute Assessment and Plan: - UA: [place], turbid, 2+ protein, 1+ ketones, 2+ blood, positive nitrates, 2+ bilirubin, 2+ leuk esterase, greater than 100 RBC, 21-50 WBC, occasional epithelial cells, no bacteria. Calcium oxalate crystals present. - UC pending - no previous micro available for review - started on Ceftriaxone on 12/22 (3) NATALY (acute kidney injury): Code(s): N17.9 - Acute kidney failure, unspecified Status: Acute Assessment and Plan: - Cr 1.44, baseline Cr 1.0 - in setting of above - continue IV fluids - urology planning for ureteral stent placement today (4) Pulmonary nodule: Code(s): R91.1 - Solitary pulmonary nodule Status: Acute Assessment and Plan: - CT abdomen showed 4mm pulmonary nodule in the RML - recommend outpatient CT chest Subjective Date/time seen: 12/23/24 07:14 Interval history: 29 y/o M with PMH of kidney stones presents here with flank pain. Patient seen and examined at bedside. Pain still present, but improved. Denied further nausea or vomiting. Patient eager to discharge, but explained the importance of staying in the hospital and patient agreeable. Review of Systems Review of Systems: All systems reviewed & are unremarkable except as noted in HPI and below Exam Narrative: General: NAD Eyes: EOMI ENT: neck supple Cardiovascular: Regular rate and rhythm Respiratory: Clear to auscultation, respirations even and unlabored on RA Gastrointestinal: Soft, non tender Genitourinary: no suprapubic tenderness Musculoskeletal: No edema Skin: warm, dry Neuro: Alert. Psych: Mood appropriate Objective Data Vital Signs Vital Signs: Vital Signs - 24 hr 12/22/24 13:39 12/22/24 19:33 12/22/24 20:04 Temperature 98.1 F 98.3 F Pulse Rate 90 65 62 Respiratory Rate 16 17 Blood Pressure 156/102 H 152/80 H Pulse Oximetry 98 99 98 Oxygen Delivery Room Air Room Air 12/23/24 03:30 12/23/24 04:53 Temperature 98.2 F 97.7 F Pulse Rate 89 67 Respiratory Rate 18 17 Blood Pressure 151/77 H 139/83 Pulse Oximetry 99 98 Oxygen Delivery Intake/Output Intake/Output: Intake & Output 12/20/24 12/21/24 12/22/24 12/23/24 23:59 23:59 23:59 23:59 Intake Total 1000 2000 Output Total 50 100 Balance 950 1900 Meds/Results Medications: Active Medications Generic Name Dose Route Start Last Admin Trade Name Freq PRN Reason Stop Dose Admin Acetaminophen 650 mg 12/22/24 17:24 Acetaminophen 325 Mg Tablet PO Q6H PRN Pain Rated 1-3 Hydrocodone Bitart/Acetaminophen 1 tab 12/22/24 17:24 12/23/24 03:51 Hydrocodone/Acetaminophen (*Crx) 5-325 Mg Tablet PO 1 tab Q4H PRN Administration Pain Rated 4-6 Hydromorphone HCl 0.5 mg 12/22/24 19:40 12/23/24 06:42 Hydromorphone Hcl Inj (*Crx) 1 Mg/Ml Syr IV PUSH 0.5 mg Q3H PRN Administration Pain Rated 7-10 Sodium Chloride 1,000 mls @ 125 mls/hr 12/22/24 17:05 12/23/24 03:50 Normal Saline Iv IV CONT 125 mls/hr .Q8H ASHU Administration Ondansetron HCl 4 mg 12/22/24 17:03 12/23/24 04:42 Ondansetron Inj 4 Mg/2 Ml Vial IV PUSH 4 mg Q4H PRN Administration Nausea Polyethylene Glycol 17 gm 12/22/24 17:24 Polyethylene Glycol 3350 17 Gm Powd.Pack PO QAM PRN Constipation Tamsulosin HCl 0.4 mg 12/23/24 09:00 Tamsulosin Hcl 0.4 Mg Capsule PO QAM [facility] Radiology Results: ITS Impressions Abdomen/Pelvis CT 12/22/24 15:10 IMPRESSION: 1. Mild left-sided hydronephrosis secondary to a 5 mm calcification in the distal left ureter about the left ureterovesicular junction. 2. Bilateral nonobstructing renal stones. 3. Stable 4 mm pulmonary nodule in the right middle lobe. A chest CT is recommended. Abdomen X-Ray 12/22/24 16:24 IMPRESSION: 1. Nonspecific abdomen. 2. There are a few less than 1.0 cm calcifications projecting over the pelvis which may represent phleboliths, however, a distal ureteral stone or bladder stone or possible. If symptoms persist or worsen, consider a short-term follow-up study or additional imaging for further assessment. Labs Labs: Laboratory Results - last 24 hr 12/22/24 12/23/24 15:15 03:56 WBC 14.1 H 13.4 H RBC 5.35 4.88 Hgb 16.2 14.8 Hct 47.0 43.3 MCV 87.9 88.7 MCH 30.3 30.3 MCHC 34.5 34.2 RDW 12.4 12.3 Plt Count 270 213 MPV 10.4 10.1 Immature Gran % (Auto) 0.4 0.3 Neut % (Auto) 84.1 H 82.6 H Lymph % (Auto) 11.2 L 9.9 L [place] % (Auto) 4.2 7.1 Eos % (Auto) 0.0 0.0 Baso % (Auto) 0.1 L 0.1 L Lymph # (Auto) 1.59 1.33 [place] # (Auto) 0.6 1.0 H Eos # (Auto) 0.0 0.0 Baso # (Auto) 0.0 0.0 Abs Immat Gran (auto) 0.05 H 0.04 H Absolute Neuts (auto) 11.9 H 11.1 H Absolute Nucleated RBC 0.000 0.000 Nucleated RBC % 0.0 0.0 Sodium 137 134 L Potassium 3.8 3.9 Chloride 104 103 Carbon Dioxide 19 L 19 L Anion Gap 14 H 12 BUN 15 18 Creatinine 1.13 1.44 H Estim Creat Clear Calc 106 83 Estimated GFR > 60 57 L Glucose 132 H 113 H Calcium 10.1 9.4 Total Bilirubin 0.8 AST 36 ALT 37 Alkaline Phosphatase 71 Total Protein 9.1 H Albumin 5.2 H Lipase 134 Urine Color [place] H Urine Appearance Turbid H Urine pH 5.5 Ur Specific [place] 1.035 Urine Protein 2+ H Urine Glucose (UA) Negative Urine Ketones 1+ H Ur Blood (Man) 2+ H Urine Nitrate Positive H Urine Bilirubin 2+ H Urine Urobilinogen 1.0 Add Ur Microanalysis Reviewed Leukocyte Esterase Rfl 2+ H Urine RBC >100 H Urine WBC 21-50 H Ur Squamous Epith Cells Occasional Calcium Oxalate Crystal Present Urine Bacteria None seen Urine Casts 3-5 Quality If No VTE Prophylaxis Answer both mechanical and pharmacologic: Reason no mechanical VTE proph: low risk/not indicated Reason no pharmacologic proph: low risk/not indicated
[2024-12-23] MEDS: TAMSULOSIN HCL 0.4 MG CAPSULE PO (09:04)
[2024-12-23] MEDS: cefTRIAXone 1 GM in SODIUM CHLORIDE 0.9% IV 50 ML 100 ML IVPB (09:04)
--- NOTE | 2024-12-23 12:25 | WPDANESEPPF ---
Anes - Initial Pre Proc Eval Procedure: Operation Date: 12/23/24 13:00 Proposed Procedures p Cystoscopy, Left Stent Placement - Emiliano Oliveira MD Date/Time: 12/23/24 12:25 Surgeon: Larry Kramer MD Pre Op Diagnosis: ureterolithiasis, UTI Patient Data Age: 29 Gender: M Height: 1.73 m Weight: 118 kg Last Vital Signs Temp 36.5 C 12/23/24 04:53 Pulse 67 12/23/24 04:53 Resp 17 12/23/24 04:53 BP 139/83 12/23/24 04:53 Pulse Ox 98 12/23/24 04:53 O2 Del Method Room Air 12/22/24 20:04 Allergies Allergy/AdvReac Type Severity Reaction Status Date / Time No Known Allergies Allergy Verified 12/23/24 12:10 Home Medications ?Medication ?Instructions ?Recorded ?Confirmed ?Type No Home Medications 12/22/24 12/22/24 History Laboratory Tests 12/22/24 12/23/24 15:15 03:56 WBC 14.1 H K/mm3 13.4 H K/mm3 (4.5-10.0) (4.5-10.0) RBC 5.35 M/mm3 4.88 M/mm3 (4.6-6.20) (4.6-6.20) Hgb 16.2 g/dL 14.8 g/dL (14.0-18.0) (14.0-18.0) Hct 47.0 % 43.3 % (42.0-52.0) (42.0-52.0) MCV 87.9 fl 88.7 fl (80-100) (80-100) MCH 30.3 pg 30.3 pg (26-34) (26-34) MCHC 34.5 g/dl 34.2 g/dl (32-36) (32-36) RDW 12.4 % 12.3 % (11.5-14.5) (11.5-14.5) Plt Count 270 k/mm3 213 k/mm3 (150-375) (150-375) MPV 10.4 fl 10.1 fl (7.4-10.4) (7.4-10.4) Immature Gran % (Auto) 0.4 % 0.3 % (0-0.5) (0-0.5) Neut % (Auto) 84.1 H % 82.6 H % (45.5-73.1) (45.5-73.1) Lymph % (Auto) 11.2 L % 9.9 L % (18.3-44.2) (18.3-44.2) [place] % (Auto) 4.2 % 7.1 % (2.6-8.5) (2.6-8.5) Eos % (Auto) 0.0 % 0.0 % (0-4.4) (0-4.4) Baso % (Auto) 0.1 L % 0.1 L % (0.2-1.2) (0.2-1.2) Lymph # (Auto) 1.59 K/mm3 1.33 K/mm3 (0.9-3.2) (0.9-3.2) [place] # (Auto) 0.6 K/mm3 1.0 H K/mm3 (0.1-0.6) (0.1-0.6) Eos # (Auto) 0.0 K/mm3 0.0 K/mm3 (0-0.3) (0-0.3) Baso # (Auto) 0.0 K/mm3 0.0 K/mm3 (0.0-0.1) (0.0-0.1) Abs Immat Gran (auto) 0.05 H K/mm3 0.04 H K/mm3 (0.00-0.031) (0.00-0.031) Absolute Neuts (auto) 11.9 H K/mm3 11.1 H K/mm3 (1.3-6.7) (1.3-6.7) Absolute Nucleated RBC 0.000 K/mm3 0.000 K/mm3 (0.0-0.012) (0.0-0.012) Nucleated RBC % 0.0 % 0.0 % (0.0-0.2) (0.0-0.2) Sodium 137 mmol/L 134 L mmol/L (137-145) (137-145) Potassium 3.8 mmol/L 3.9 mmol/L (3.4-5.0) (3.4-5.0) Chloride 104 mmol/L 103 mmol/L (98-107) (98-107) Carbon Dioxide 19 L mmol/L 19 L mmol/L (22-30) (22-30) Anion Gap 14 H mmol/L 12 mmol/L (4-12) (4-12) BUN 15 mg/dL 18 mg/dL (9-20) (9-20) Creatinine 1.13 mg/dL 1.44 H mg/dL (0.7-1.3) (0.7-1.3) Estim Creat Clear Calc 106 ml/min 83 ml/min Estimated GFR > 60 57 L (59 - ) (59 - ) Glucose 132 H mg/dL 113 H mg/dL (65-110) (65-110) Calcium 10.1 mg/dL 9.4 mg/dL (8.4-10.2) (8.4-10.2) Total Bilirubin 0.8 mg/dL (0.2-1.3) AST 36 U/L (17-59) ALT 37 U/L (6-50) Alkaline Phosphatase 71 U/L (38-126) Total Protein 9.1 H g/dL (6.3-8.2) Albumin 5.2 H g/dL (3.5-5.1) Lipase 134 U/L (23-300) Urine Color [place] H (Yellow) Urine Appearance Turbid H (Clear) Urine pH 5.5 (5.0-9.0) Ur Specific [place] 1.035 (1.001-1.035) Urine Protein 2+ H mg/dL (Negative) Urine Glucose (UA) Negative mg/dL (Negative) Urine Ketones 1+ H mg/dL (Negative) Ur Blood (Man) 2+ H (Negative) Urine Nitrate Positive H (Negative) Urine Bilirubin 2+ H (Negative) Urine Urobilinogen 1.0 mg/dL (<2.0) Add Ur Microanalysis Reviewed Leukocyte Esterase Rfl 2+ H HINA/UL (Negative) Urine RBC >100 H /hpf (0-2) Urine WBC 21-50 H /hpf (0-3) Ur Squamous Epith Cells Occasional /hpf (Few) Calcium Oxalate Crystal Present /hpf (None) Urine Bacteria None seen /hpf Urine Casts 3-5 Patient hx anesthesia problems: none Family hx anesthesia problems: none Results Review: All pre-operative results and documents have been reviewed as part of the pre-operative evaluation. [facility] Past Medical History Medical History Kidney stones Social History Social History (Updated 12/23/24 @ 12:29 by Hudson Hathaway DO) Smoking packs per day: 1 Smoking cigarettes per day: 20.0 Years smoked: 20 Smoking pack-years: 20.00 Smoking status: Current every day smoker Tobacco type: cigarettes Second hand tobacco smoke exposure: Yes Alcohol intake: former Substance use: current Substance use type: marijuana Other substance usage details: daily Last use: 12/21/24 Lack of Transportation: No Lack of Food: Never True Current Housing: I Have Housing Concerned About Future Housing: No Difficulty Paying Gas/Electric Bills: No Difficulty Paying for Meds: No Currently Unemployed: No Education: Decline to Answer Difficulty w/ Childcare or Family Care: No Spiritual care concerns: No Anes - Eval Final PreProcedure Day of Procedure 12/23/24 12:25 Patient weight: obese Heart: regular rate and rhythm Lungs: clear to auscultation Airway: Mallampati scale class II and special considerations poor dentition Neurological: alert and oriented Last oral intake: >/= 8 hours ASA classification: III Emergent: no Anesthetic plan: proceed Anesthesia type and monitoring: general LMA and standard monitoring Results Review: All pre-operative results and documents have been reviewed as part of the pre-operative evaluation. Informed Consent: The patient's anesthetic plan and its attendant risks and benefits were discussed with the patient/family/POA. Questions were solicited and answers provided to the satisfaction of the patient/family/POA.
[2024-12-23] MEDS: LIDOCAINE 2% GEL UROJET 10 ML PKG MUCOUS MEM (12:55)
--- NOTE | 2024-12-23 12:57 | S_PTH ---
PATIENT: Parag Espinoza LOC: [id number] U#:[id number] AGE/SX: 29/M ROOM: 246 RE12/22/[address]: Atul Eden MD : 1995 BED: 01 DIS: 12/24/2024 SPEC #: [id number] RECD: 12/23/24 14:26 STATUS: WENDY REQ #: [id number] CLAUDIO: 12/23/24 12:[address]: Emiliano Oliveira DEPT: [facility] Surgical RECD BY: Maribell Hurd ENTERED: 12/23/24 14:28 SP TYPE: Surgical OTHR DR: MD Rosemary Vang MD Haresh K. Motwani, MD PHOTOGRAPH DEVELOPER PHYSICIAN CEFERINO Blanco Tissues: A - Stone Procedures: Gross Exam Level 1 Crystalline Analysis
--- NOTE | 2024-12-23 12:59 | W.PM.PROC2 ---
Procedure Note - Detailed Date of Procedure 12/23/24 Pre-op Diagnosis Left ureteral stone Post-op Diagnosis Same Procedure Performed Cystoscopy, left ureteroscopy with stone extraction Surgeon Emiliano Oliveira MD Anesthesia General Description of Procedure The patient was brought to the operative suite where he is prepped and draped in a routine sterile fashion while in the dorsal lithotomy position after the uneventful induction of a general LMA anesthetic. A 19F rigid cystoscope was placed in the bladder. There are no urethral strictures. The bladder mucosa was endoscopically normal without hyperemia or neoplasm. There was a single, orthotopic ureteral orifice bilaterally. A 0.035 glidewire was advanced into the left renal pelvis under fluoroscopy. The distal ureter was dilated with an 8F/10F ureteral dilator. Ureteroscopy was undertaken with a short, tapered, semi-rigid ureteroscope and the stone was extracted with ease using a 1.9F Escape disposable stone basket. Due to the ease of this manipulation I opted not to place a ureteral stent. The patient's bladder was emptied and was taken to the recovery room having tolerated this procedure well. Urine Output 50 Drains No Packing No Pathology None sent Complications No immediate complications
[2024-12-23] MEDS: LACTATED RINGERS 1,000 ML 30 ML IV CONT (13:03)
[2024-12-24] MEDS: SODIUM CHLORIDE 0.9% IV 1,000 ML 125 ML IV CONT ×2 (00:13→08:14)
[2024-12-24] MEDS: HYDROcodone/acetaminophen (*CRX) 5-325 MG TABLET 1 TAB PO ×2 (03:41→08:12)
[2024-12-24 05:04] LABS: Hematocrit 37.6 % (42.0-52.0); Hemoglobin 12.8 g/dL (14.0-18.0); Immature Granulocyte Percent A 0.4 % (0-0.5); Lymphocytes Absolute Auto 2.17 K/mm3 (0.9-3.2); Mean Corpuscular HGB Conc 34.0 g/dl (32-36); Mean Corpuscular Hemoglobin 30.6 pg (26-34); Mean Corpuscular Volume 90.0 fl (80-100); Nucleated Red Blood Cells Absolute Auto 0.000 K/mm3 (0.0-0.012); Nucleated Red Blood Cells Perc 0.0 % (0.0-0.2); Platelet Count Result 191 k/mm3 (150-375); Red Blood Count 4.18 M/mm3 (4.6-6.20); White Blood Count 11.4 K/mm3 (4.5-10.0)
[2024-12-24 05:22] LABS: Anion Gap 7 mmol/L (4-12); Blood Urea Nitrogen 14 mg/dL (9-20); Calcium 8.5 mg/dL (8.4-10.2); Carbon Dioxide 22 mmol/L (22-30); Chloride 106 mmol/L (98-107); Estimated CRCL calculation 83 ml/min; Estimated Glomerular Filt Rate 57; Glucose 95 mg/dL (65-110); Potassium 3.5 mmol/L (3.4-5.0); Sodium 135 mmol/L (137-145)
[2024-12-24 06:00] VITALS: BP 147/79; PULSE 74; RESP 20; TEMP 36.6; O2SAT 98
--- NOTE | 2024-12-24 06:52 | P.PNUR_ITS ---
Progress Note: A&P Assessment and Plan (1) Ureteral calculus, left: Code(s): N20.1 - Calculus of ureter Status: Acute Assessment and Plan: * Feeling much better, afebrile and urine culture without significant growth. * He can be discharged today follow-up with me in 3-4 weeks Subjective Subjective Date/Time Seen: 12/24/24 06:52 Interval history: Minimal left flank discomfort, feeling much better. Review of Systems Cardiovascular: Cardiovascular: Denies chest pain, Denies lightheadedness, Denies palpitations and Denies dyspnea Respiratory: Respiratory: Denies dyspnea Gastrointestinal: Gastrointestinal: Denies diarrhea, Denies nausea and Denies vomiting Genitourinary: Genitourinary: Denies hematuria and Denies dysuria Endocrine: Endocrine: Denies palpitations Exam Const: General: no acute distress Resp: Effort & Inspection: normal respiratory effort GI: Inspection: non-distended GI Palp: No abdominal tenderness and No Guarding due to palpation present (GI) Auscultation: normal bowel sounds Objective Data Vital Signs Vital Signs: Vital Signs - 24 hr 12/23/24 13:03 12/23/24 13:15 12/23/24 13:30 Temperature 97.1 F L Pulse Rate 55 L 62 71 Respiratory Rate 19 16 18 Blood Pressure 101/54 L 114/74 133/72 Pulse Oximetry 99 95 95 Oxygen Delivery Simple Face Mask Room Air Room Air Oxygen Flow Rate 10 12/23/24 13:45 12/23/24 14:20 12/23/24 14:35 Temperature 97.3 F L 97.4 F L 97.6 F Pulse Rate 75 67 66 Respiratory Rate 18 16 16 Blood Pressure 130/70 132/84 139/81 Pulse Oximetry 96 98 99 Oxygen Delivery Room Air Oxygen Flow Rate 12/23/24 15:05 12/23/24 16:05 12/23/24 20:00 Temperature 98.0 F 97.8 F Pulse Rate 65 62 Respiratory Rate 16 16 Blood Pressure 134/84 140/72 Pulse Oximetry 97 97 Oxygen Delivery Room Air Oxygen Flow Rate 12/23/24 21:29 12/24/24 06:00 Temperature 98.2 F 97.8 F Pulse Rate 81 74 Respiratory Rate 20 20 Blood Pressure 137/77 147/79 H Pulse Oximetry 98 98 Oxygen Delivery Oxygen Flow Rate Intake/Output Intake/Output: Intake & Output 12/21/24 12/22/24 12/23/24 12/24/24 23:59 23:59 23:59 23:59 Intake Total 1000 3590 1493.8 Output Total 50 150 Balance 950 3440 1493.8 Meds/Results Medications: Active Medications Generic Name Dose Route Start Last Admin Trade Name Freq PRN Reason Stop Dose Admin Acetaminophen 650 mg 12/22/24 17:24 Acetaminophen 325 Mg Tablet PO Q6H PRN Pain Rated 1-3 Hydrocodone Bitart/Acetaminophen 1 tab 12/22/24 17:24 12/24/24 03:41 Hydrocodone/Acetaminophen (*Crx) 5-325 Mg Tablet PO 1 tab Q4H PRN Administration Pain Rated 4-6 Hydromorphone HCl 0.5 mg 12/22/24 19:40 12/23/24 10:34 Hydromorphone Hcl Inj (*Crx) 1 Mg/Ml Syr IV PUSH 0.5 mg Q3H PRN Administration Pain Rated 7-10 Sodium Chloride 1,000 mls @ 125 mls/hr 12/22/24 17:05 12/24/24 00:13 Normal Saline Iv IV CONT 125 mls/hr .Q8H ASHU Administration Ceftriaxone Sodium 1 gm/ 50 mls @ 100 mls/hr 12/24/24 09:00 Sodium Chloride IVPB Q24H ASHU Ondansetron HCl 4 mg 12/22/24 17:03 12/23/24 04:42 Ondansetron Inj 4 Mg/2 Ml Vial IV PUSH 4 mg Q4H PRN Administration Nausea Polyethylene Glycol 17 gm 12/22/24 17:24 Polyethylene Glycol 3350 17 Gm Powd.Pack PO QAM PRN Constipation Tamsulosin HCl 0.4 mg 12/23/24 09:00 12/23/24 09:04 Tamsulosin Hcl 0.4 Mg Capsule PO 0.4 mg QAM ASHU Administration Radiology Results: ITS Impressions Abdomen/Pelvis CT 12/22/24 15:10 IMPRESSION: 1. Mild left-sided hydronephrosis secondary to a 5 mm calcification in the distal left ureter about the left ureterovesicular junction. 2. Bilateral nonobstructing renal stones. 3. Stable 4 mm pulmonary nodule in the right middle lobe. A chest CT is recommended. Abdomen X-Ray 12/22/24 16:24 IMPRESSION: 1. Nonspecific abdomen. 2. There are a few less than 1.0 cm calcifications projecting over the pelvis which may represent phleboliths, however, a distal ureteral stone or bladder stone or possible. If symptoms persist or worsen, consider a short-term follow-up study or additional imaging for further assessment. Fluoroscopy 12/23/24 17:08 IMPRESSION: Fluoroscopy used during Cystoscopy, stone extraction. Labs Labs: Laboratory Results - last 24 hr 12/24/24 04:23 WBC 11.4 H RBC 4.18 L Hgb 12.8 L Hct 37.6 L MCV 90.0 MCH 30.6 MCHC 34.0 RDW 12.0 Plt Count 191 MPV 10.9 H Immature Gran % (Auto) 0.4 Neut % (Auto) 72.3 Lymph % (Auto) 19.1 [place] % (Auto) 7.9 Eos % (Auto) 0.1 Baso % (Auto) 0.2 Lymph # (Auto) 2.17 [place] # (Auto) 0.9 H Eos # (Auto) 0.0 Baso # (Auto) 0.0 Abs Immat Gran (auto) 0.05 H Absolute Neuts (auto) 8.2 H Absolute Nucleated RBC 0.000 Nucleated RBC % 0.0 Sodium 135 L Potassium 3.5 Chloride 106 Carbon Dioxide 22 Anion Gap 7 BUN 14 Creatinine 1.44 H Estim Creat Clear Calc 83 Estimated GFR 57 L Glucose 95 Calcium 8.5
[2024-12-24] MEDS: cefTRIAXone 1 GM in SODIUM CHLORIDE 0.9% IV 50 ML 100 ML IVPB (08:13)
[2024-12-24] MEDS: TAMSULOSIN HCL 0.4 MG CAPSULE PO (08:13)
--- NOTE | 2024-12-24 10:21 | P.DS_ITS ---
DS: Admitting Diagnosis Discharge Date 12/24/24 Admitting Diagnosis - ureteral calculus - abnormal UA DS: Discharge Diagnosis Discharge Diagnosis (1) Ureteral calculus, left: Code(s): N20.1 - Calculus of ureter Status: Acute (2) UTI (urinary tract infection): Qualifiers: Urinary tract infection type: acute cystitis Hematuria presence: with hematuria Qualified Code(s): N30.01 - Acute cystitis with hematuria Code(s): N39.0 - Urinary tract infection, site not specified Status: Acute (3) NATALY (acute kidney injury): Code(s): N17.9 - Acute kidney failure, unspecified Status: Acute (4) Pulmonary nodule: Code(s): R91.1 - Solitary pulmonary nodule Status: Acute DS: Summary Hospital Course Reason for hospitalization: - ureteral calculus Hospital Course: Patient is a 29 yo male with history of kidney stones who presented to the emergency department with complaints of left flank pain. ED workup showed: WBC 14.1, no anemia, no significant electrolyte derangements, creatinine 1.13 and GFR >60, glucose 132, albumin 5.2, and UA consistent with UTI (few epithelial cells noted). CT of the abdomen/pelvis showed mild left- sided hydronephrosis secondary to a 5 mm calcification in the distal left ureter about the left ureteral vesicular junction, bilateral nonobstructing renal stones, stable 4 mm pulmonary nodule in the right middle lobe. Abdominal XR was nonspecific and there are a few less than 1 cm calcifications projecting over the pelvis which may represent phleboliths, however a distal ureteral stone or bladder stone is possible. Patient was started on IV Rocephin due to concern for UTI. Patient was admitted for further urologic intervention. Patient underwent cystoscopy, left ureteroscopy with stone extraction by Dr. Oliveira 12/23/24. Patient had significant improvement in his symptoms postop. Urine culture resulted with no significant growth. Urology did not recommend any further antibiotics and cleared patient for discharge. Patient admitted NATALY with creatinine 1.4 (baseline normal). Patient's creatinine was persistently mildly elevated postop, but stable. Patient wished to be discharged with close outpatient follow-up. Patient instructed to obtain repeat BMP in 5-7 days and follow up with the on-call physician until he is able to establish with a PCP. He will also follow-up with urology in 3-4 weeks. Patient was discharged home in stable condition. Strict return precautions discussed. Status at Discharge Functional status at discharge: independent ambulation Time Spent with Patient Time attestation: Total time spent providing and/or coordinating discharge services: Time spent: Greater than 30 minutes Exam Narrative: General: NAD Eyes: EOMI ENT: neck supple Cardiovascular: Regular rate and rhythm Respiratory: Clear to auscultation, respirations even and unlabored on RA Gastrointestinal: Soft, non tender Genitourinary: no suprapubic tenderness Musculoskeletal: No edema Skin: warm, dry Neuro: Alert. Psych: Mood appropriate DS: Data Data Completed and Pending Completed studies during hospitalization: ITS Impressions Abdomen/Pelvis CT 12/22/24 15:10 IMPRESSION: 1. Mild left-sided hydronephrosis secondary to a 5 mm calcification in the distal left ureter about the left ureterovesicular junction. 2. Bilateral nonobstructing renal stones. 3. Stable 4 mm pulmonary nodule in the right middle lobe. A chest CT is recommended. Abdomen X-Ray 12/22/24 16:24 IMPRESSION: 1. Nonspecific abdomen. 2. There are a few less than 1.0 cm calcifications projecting over the pelvis which may represent phleboliths, however, a distal ureteral stone or bladder stone or possible. If symptoms persist or worsen, consider a short-term follow-up study or additional imaging for further assessment. Fluoroscopy 12/23/24 17:08 IMPRESSION: Fluoroscopy used during Cystoscopy, stone extraction. Pending studies at discharge: Pending at discharge 12/23/24 12:57 Surgical [PTH] Routine Labs on day of discharge: Labs from last 24 hours 12/24/24 04:23 WBC 11.4 H RBC 4.18 L Hgb 12.8 L Hct 37.6 L MCV 90.0 MCH 30.6 MCHC 34.0 RDW 12.0 Plt Count 191 MPV 10.9 H Immature Gran % (Auto) 0.4 Neut % (Auto) 72.3 Lymph % (Auto) 19.1 [place] % (Auto) 7.9 Eos % (Auto) 0.1 Baso % (Auto) 0.2 Lymph # (Auto) 2.17 [place] # (Auto) 0.9 H Eos # (Auto) 0.0 Baso # (Auto) 0.0 Abs Immat Gran (auto) 0.05 H Absolute Neuts (auto) 8.2 H Absolute Nucleated RBC 0.000 Nucleated RBC % 0.0 Sodium 135 L Potassium 3.5 Chloride 106 Carbon Dioxide 22 Anion Gap 7 BUN 14 Creatinine 1.44 H Estim Creat Clear Calc 83 Estimated GFR 57 L Glucose 95 Calcium 8.5 Discharge Plan Discharge Attending physician on discharge: Atul Eden Consulting providers: Tien Hollingsworth; Florencia Soni; Rosemary Boswell Discharging Clinician: Florencia Soni Anticipated Discharge Date/Time: 12/24/24 10:11 Patient Disposition: Home Activity: may shower and as tolerated Diet: as tolerated Discharge Instructions: Take all medications as prescribed. You have been prescribed [place] to be used for severe pain only. Utilize Tylenol (acetaminophen) [id number]. Do not exceed 4000 mg of acetaminophen daily. [place] contains 325 mg of acetaminophen. Avoid anti-inflammatories such as ibuprofen/Advil, naproxen/Aleve as this can affect kidney function. Follow-up with your primary care provider in one week. While in the hospital you had an acute kidney injury likely due to kidney stone. Have her labs repeated in 5-7 days and follow up with the on-call internal medicine physician as listed. Make sure you are drinking plenty of water to stay hydrated. Follow-up with urology in 3-[address] scan showed that you have a small pulmonary nodule in the right lung. This can be due to prior infection or smoking. We recommend that you have an outpatient CT scan of the lung that can be arranged by a primary care doctor. Return to the emergency department if you develop chest pain, shortness of breath, persistent fever >100.4, confusion, loss of consciousness, severe pain, nausea or vomiting. Patient Instructions: Acute Kidney Injury (DC), Kidney Stones (DC) Patient Language: Lao Stand Alone Forms: General Discharge Information, Work/School Release IP Follow-up/Referrals: Emiliano Oliveira MD [Physician, Urology] - Call for Appointment Referral Note: follow-up in 3-4 weeks for kidney stone Facudno Santana MD [Physician, Family Practice] - 1 Week Referral Note: call for a hospital follow-up appointment discuss repeat CT scan for pulmonary nodule and repeat lab work for kidney function Discharge Medications: New acetaminophen 325 mg Tablet 650 mg PO Q6H PRN (Reason: Pain Rated 1-3) Qty: 50 0RF hydrocodone-acetaminophen 5-325 mg tablet 1 tablet PO Q8H PRN (Reason: pain) Qty: 6 0RF Other Ambulatory Orders: Basic Metabolic Panel (Routine) Timeframe: 1 Week Location: Determined by Patient Ordered By: Florencia Soni Date of admission: 12/22/24 17:03 Primary Care Provider: PHYSICIAN,APPLIED BIOLOGY PROFESSOR Admitting Provider: Larry Kramer Attending physician on admission: Larry Kramer Condition: Stable
== END 2024-12-24 10:55 | disposition home or self-care (01) ==
LOC: ANHED 18:09 → ANH2MED 12-23 06:53
PROVIDERS: Physician Assistant; Student in an Organized Health Care Education/Training Program; Urology; Admitting Provider Family Medicine; Emergency Provider Emergency Medicine; Visit Provider Internal Medicine
PROC: (CPT 52352; principal; 2024-12-23 13:00)
DX: N20.1 Calculus of ureter (principal); N30.01 Acute cystitis with hematuria; N17.9 Acute kidney failure, unspecified; R91.1 Solitary pulmonary nodule; F17.210 Nicotine dependence, cigarettes, uncomplicated
CPT/HCPCS: 52352; 36415; 74018; 74176; 80048; 80053; 81001; 82365; 83690; 85025; 87086; 88300; 96361; 96365; 96374; 96375; 96376; 99199; 99285; A9270; C1769; G0378; J0696; J1171; J2270; J2405; J2704; J3010; J7030; J7120; Q9966

== ENCOUNTER 2024-12-26 19:34 | Emergency (ER) | payer SELFPAY ==
[2024-12-26] VITALS (12 sets, daily range): BP systolic 151–176; BP diastolic 90–100; PULSE 76–94; RESP 13–22; TEMP 36.6; O2SAT 97–99
--- NOTE | ~2024-12-26 | CT_ITS ---
EXAMINATION: CT abdomen pelvis w con DATE: 12/26/2024 22:55 INDICATION: Left lower quadrant abdominal pain TECHNIQUE: Computed tomography (CT) of the abdomen and pelvis was performed without intravenous contrast. The dose-length product was 1462.28 mGy-cm. Automated exposure control and iterative reconstruction technique were employed. COMPARISON: CT dated 12/22/2024 FINDINGS: Lung bases unremarkable. Heart size normal. Fatty infiltration of the liver. The spleen, pancreas, adrenal glands and right kidney are unremarkable. There is a 2 mm distal right ureteral stone with moderate left hydronephrosis and periureteral edema. Gallbladder is present. Nonobstructive bowel gas pattern. No acute osseous abnormality. IMPRESSION: 1. Distal left ureteral stone measuring 2 mm with moderate left hydronephrosis. Reviewed, dictated and finalized at location O.
[2024-12-26] MEDS: ONDANSETRON INJ 4 MG/2 ML VIAL IV PUSH (20:21)
[2024-12-26] MEDS: SODIUM CHLORIDE 0.9% IV 1,000 ML 999 ML IV CONT ×2 (20:21→21:12)
[2024-12-26 20:29] LABS: Hematocrit 42.4 % (42.0-52.0); Hemoglobin 14.3 g/dL (14.0-18.0); Immature Granulocyte Percent A 0.3 % (0-0.5); Lymphocytes Absolute Auto 1.00 K/mm3 (0.9-3.2); Mean Corpuscular HGB Conc 33.7 g/dl (32-36); Mean Corpuscular Hemoglobin 30.1 pg (26-34); Mean Corpuscular Volume 89.3 fl (80-100); Nucleated Red Blood Cells Absolute Auto 0.000 K/mm3 (0.0-0.012); Nucleated Red Blood Cells Perc 0.0 % (0.0-0.2); Platelet Count Result 240 k/mm3 (150-375); Red Blood Count 4.75 M/mm3 (4.6-6.20); White Blood Count 12.9 K/mm3 (4.5-10.0)
[2024-12-26 20:31] LABS: Add Urine Microscopic? YES; Appearance Urine Cloudy (Clear); Glucose Urine UA Negative (Negative); Leukocyte Esterase Ur 1+ LEU/UL (Negative); Nitrate Urine Negative (Negative); Non Pathogenic Casts 0-2; Specific Grav Ur 1.033 (1.001-1.035)
[2024-12-26 20:57] LABS: Alanine Aminotransferase 39 U/L (6-50); Albumin Level 4.4 g/dL (3.5-5.1); Alkaline Phosphatase 67 U/L (38-126); Anion Gap 8 mmol/L (4-12); Aspartate Amino Transferase 34 U/L (17-59); Bilirubin,Total 0.8 mg/dL (0.2-1.3); Blood Urea Nitrogen 12 mg/dL (9-20); Calcium 9.8 mg/dL (8.4-10.2); Carbon Dioxide 26 mmol/L (22-30); Chloride 101 mmol/L (98-107); Estimated Glomerular Filt Rate > 60; Glucose 121 mg/dL (65-110); Lipase 31 U/L (23-300); Magnesium 2.0 mg/dL (1.6-2.3); Potassium 3.5 mmol/L (3.4-5.0); Sodium 135 mmol/L (137-145); Total Protein 7.9 g/dL (6.3-8.2)
--- NOTE | 2024-12-26 20:57 | ED_ITS ---
HPI - Abdominal Pain General Chief Complaint: Abdominal Pain Stated Complaint: LLQ pain-? kidney stone-bladder infection Time Seen by Provider: 12/26/24 20:08 History of Present Illness HPI narrative: Patient is a 29-year-old male who presents to the ER with left lower quadrant abdominal pain. He reports he had lithotripsy 4 days ago. Patient reports his pain worsened 2nd day after his surgery. He endorses nausea and vomiting, sweats, hematuria, and increased abdominal pain. Patient reports his flank pain has resolved. He reports he did not have a stent placed. Patient reports he has not had a bowel movement since his surgery. He denies any current urinary symptoms. Patient denies any other medical history relevant to this ER visit. Related Data Allergies Allergy/AdvReac Type Severity Reaction Status Date / Time No Known Allergies Allergy Verified 12/23/24 12:10 Review of Systems 2 Review of Systems: All systems reviewed & are unremarkable except as noted in HPI and below PMFSH Past Medical History Medical History Kidney stones Social History Social History Smoking packs per day: 1 Smoking cigarettes per day: 20.0 Years smoked: 20 Smoking pack-years: 20.00 Smoking status: Current every day smoker Tobacco type: cigarettes Second hand tobacco smoke exposure: Yes Alcohol intake: former Substance use: current Substance use type: marijuana Other substance usage details: daily Last use: 12/21/24 Lack of Transportation: No Lack of Food: Never True Current Housing: I Have Housing Concerned About Future Housing: No Difficulty Paying Gas/Electric Bills: No Difficulty Paying for Meds: No Currently Unemployed: No Education: Decline to Answer Difficulty w/ Childcare or Family Care: No Spiritual care concerns: No Exam 2 Narrative: GENERAL: Well appearing, well-nourished, non-toxic, in no acute distress. HEAD: Normocephalic, atraumatic. NECK: Supple. No adenopathy, no masses. RESPIRATORY: Airway patent, respirations nonlabored. Clear to auscultation bilaterally, no rales, rhonchi, wheezing. CARDIOVASCULAR: Regular rate and rhythm without murmurs, rubs, or gallops. Peripheral pulses 2+ and equal bilaterally. ABDOMINAL: Soft, LLQ abdominal pain with palpation, nondistended, no hepatosplenomegaly. Normoactive BS. MUSCULOSKELETAL: Moves all extremities. Strength/ROM intact without gross deformities. SKIN: Warm, dry, normal color. No rashes. NEURO: A&O X3. Speech clear. Cranial nerves II-XII intact. No ataxic movements. PSYCHIATRIC: Appropriate mood and affect. Normal interaction. Course Vital Signs Vital signs: Vital Signs Temperature 36.6 C 12/26/24 20:01 Pulse Rate 88 12/26/24 20:01 Respiratory Rate 19 12/26/24 20:01 Blood Pressure 176/100 H 12/26/24 20:01 Pulse Oximetry 97 12/26/24 20:01 Oxygen Delivery Room Air 12/26/24 20:01 Temperature 36.6 C 12/26/24 20:01 Pulse Rate 88 12/26/24 20:01 Respiratory Rate 19 12/26/24 20:01 Blood Pressure 176/100 H 12/26/24 20:01 Pulse Oximetry 97 12/26/24 20:01 Oxygen Delivery Room Air 12/26/24 20:01 MDM - Abdominal Pain MDM Narrative Medical decision making narrative: Patient is a 29-year-old male who presents to the ER with left lower quadrant abdominal pain. He reports he had lithotripsy 4 days ago. Patient reports his pain worsened 2nd day after his surgery. He endorses nausea and vomiting, sweats, hematuria, and increased abdominal pain. Patient reports his flank pain has resolved. He reports he did not have a stent placed. Patient reports he has not had a bowel movement since his surgery. He denies any current urinary symptoms. Patient denies any other medical history relevant to this ER visit. Labs Ordered: CBC, CMP, lactic acid, CRP, UA, lipase, magnesium Imaging Ordered: CT abdomen pelvis with con Medications Ordered: 1 L normal saline IV bolus, Rocephin 1 g IV, Toradol 15 mg IV Results: Patient's urinalysis indicates patient has a UTI. His CT scan indicates partially obstructing stone in the left distal ureter measures 2 mm. Mild-moderate hydronephrosis of left kidney with delayed nephrogram. The current stone is small and partially obstructing the for his presumed the larger stone has recently passed. Diagnosis: L small partially obstructing kidney stone, urinary tract infection Consults: urology (outpatient) Patient Education/Shared MDM: Pt's CT scan results were discussed with attending, Dr. Cummings. Since pt recently had a lithotripsy without stent placement and his stone is less than 5mm, he will receive Toradol here in the ER and will be sent home with a prescription for Ibuprofen. Results of lab work and imaging shared with patient. He endorses improvement of symptoms following medication administration. Patient strongly advised to maintain hydration status upon discharge and follow-up with urology as planned. He will be discharged home with a prescription for Flomax, Miralax, Zofran and ibuprofen. Strict return precautions provided. He was strongly advised to maintain oral hydration after discharge. Patient verbalized understanding and is in agreement with plan. Vital signs stable at time of discharge. All questions answered. Differential Diagnosis Differential diagnosis: Likely abdominal pain, calculus of kidney, diverticulitis, gastroenteritis and small bowel obstruction Lab Data Attestation: I reviewed the patient's lab results. 12/26/24 20:19 12/26/24 20:19 Labs: Lab Results 12/26/24 12/26/24 Range/Units 20:19 21:13 WBC 12.9 H (4.5-10.0) K/mm3 RBC 4.75 (4.6-6.20) M/mm3 Hgb 14.3 (14.0-18.0) g/dL Hct 42.4 (42.0-52.0) % MCV 89.3 (80-100) fl MCH 30.1 (26-34) pg MCHC 33.7 (32-36) g/dl RDW 11.9 (11.5-14.5) % Plt Count 240 (150-375) k/mm3 MPV 10.5 H (7.4-10.4) fl Immature Gran % (Auto) 0.3 (0-0.5) % Neut % (Auto) 82.9 H (45.5-73.1) % Lymph % (Auto) 7.8 L (18.3-44.2) % [place] % (Auto) 8.6 H (2.6-8.5) % Eos % (Auto) 0.2 (0-4.4) % Baso % (Auto) 0.2 (0.2-1.2) % Lymph # (Auto) 1.00 (0.9-3.2) K/mm3 [place] # (Auto) 1.1 H (0.1-0.6) K/mm3 Eos # (Auto) 0.0 (0-0.3) K/mm3 Baso # (Auto) 0.0 (0.0-0.1) K/mm3 Abs Immat Gran (auto) 0.04 H (0.00-0.031) K/mm3 Absolute Neuts (auto) 10.7 H (1.3-6.7) K/mm3 Absolute Nucleated RBC 0.000 (0.0-0.012) K/mm3 Nucleated RBC % 0.0 (0.0-0.2) % PT 13.3 (11.1-14.7) Seconds INR 1.0 APTT 33.0 (22.3-36.8) Seconds Sodium 135 L (137-145) mmol/L Potassium 3.5 (3.4-5.0) mmol/L Chloride 101 (98-107) mmol/L Carbon Dioxide 26 (22-30) mmol/L Anion Gap 8 (4-12) mmol/L BUN 12 (9-20) mg/dL Creatinine 1.34 H (0.7-1.3) mg/dL Estim Creat Clear Calc Not Reportable Estimated GFR > 60 (59 - ) Glucose 121 H (65-110) mg/dL Lactic Acid 0.6 L (0.7-2.0) mmol/L Calcium 9.8 (8.4-10.2) mg/dL Magnesium 2.0 (1.6-2.3) mg/dL Total Bilirubin 0.8 (0.2-1.3) mg/dL AST 34 (17-59) U/L ALT 39 (6-50) U/L Alkaline Phosphatase 67 (38-126) U/L C-Reactive Protein 12.1 H (<1.0) mg/dL Total Protein 7.9 (6.3-8.2) g/dL Albumin 4.4 (3.5-5.1) g/dL Lipase 31 (23-300) U/L Urine Color Dark yellow (Yellow) Urine Appearance Cloudy H (Clear) Urine pH 6.5 (5.0-9.0) Ur Specific [place] 1.033 (1.001-1.035) Urine Protein 1+ H (Negative) mg/dL Urine Glucose (UA) Negative (Negative) mg/dL Urine Ketones 1+ H (Negative) mg/dL Ur Blood (Man) 3+ H (Negative) Urine Nitrate Negative (Negative) Urine Bilirubin Negative (Negative) Urine Urobilinogen 1.0 (<2.0) mg/dL Leukocyte Esterase Rfl 1+ H (Negative) HINA/UL Urine RBC >100 H (0-2) /hpf Urine WBC 21-50 H (0-3) /hpf Ur Squamous Epith Cells None seen (Few) /hpf Urine Bacteria None seen /hpf Urine Casts 0-2 Imaging Data Attestation: I personally reviewed and interpreted this imaging study as follows: Radiologist's impression: partially obstructing stone in the left distal ureter measures 2 mm. Mild- moderate hydronephrosis of left kidney with delayed nephrogram. The current stone is small and partially obstructing the for his presumed the larger stone has recently passed. Discharge Plan Discharge Clinical Impression: Ureteral calculus, left UTI (urinary tract infection) Qualifiers: Urinary tract infection type: acute cystitis Hematuria presence: with hematuria Qualified Code(s): N30.01 - Acute cystitis with hematuria Patient Disposition: Home Condition: Stable Instructions: Antibiotic Form, Kidney Stones (ED), Lithotripsy (DC) Additional Instructions: Please return to the ER with any worsening symptoms. Follow-up with Urology, as planned. Take all medications as prescribed, including regularly scheduled medications. You may take ibuprofen for pain control. Please take a Flomax every day. If you feel nauseated you may take Zofran as needed. Please take MiraLax to help you have bowel movement. Patient Language: Lithuanian Prescriptions: New tamsulosin [Flomax] 0.4 mg capsule 0.4 mg PO DAILY Qty: 10 0RF cephalexin 500 mg capsule 500 mg PO Q8H 7 Days Qty: 21 0RF ondansetron 4 mg tablet,disintegrating 4 mg PO Q8H Qty: 20 0RF ibuprofen 600 mg tablet 600 mg PO TID PRN (Reason: fever or pain) Qty: 30 0RF polyethylene glycol 3350 [Miralax] 17 gram/dose powder 17 g PO BID Qty: 238 0RF No Action acetaminophen 325 mg Tablet 650 mg PO Q6H PRN (Reason: Pain Rated 1-3) Qty: 50 0RF hydrocodone-acetaminophen 5-325 mg tablet 1 tablet PO Q8H PRN (Reason: pain) Qty: 6 0RF Follow-up/Referrals: PHYSICIAN,TRACK GRINDER OPERATOR [Primary Care Provider, Internal Medicine] Emiliano Oliveira MD [Physician, Urology] Referral Note: urology Stand Alone Forms: Work/School Release IP Time of Disposition: 00:52
[2024-12-26] MEDS: cefTRIAXone 1 GM in SODIUM CHLORIDE 0.9% IV 50 ML 100 ML IVPB (21:15)
[2024-12-26 21:24] LABS: CRP 12.1 mg/dL (<1.0)
[2024-12-26 21:39] LABS: INR 1.0; Prothrombin Time 13.3 Seconds (11.1-14.7)
[2024-12-26 21:40] LABS: Partial Thromboplastin Time 33.0 Seconds (22.3-36.8)
[2024-12-27 00:36] VITALS: PULSE 84; RESP 14; O2SAT 99
[2024-12-27 00:45] VITALS: PULSE 86; RESP 26; O2SAT 97
[2024-12-27] MEDS: KETOROLAC 15 MG/ML VIAL (*BKC) IV PUSH (00:47)
[2024-12-27 01:00] VITALS: PULSE 83; RESP 12; O2SAT 99
[2024-12-27] MEDS: TAMSULOSIN HCL 0.4 MG CAPSULE PO (01:11)
== END 2024-12-27 01:29 | disposition home or self-care (01) ==
PROVIDERS: Emergency Medicine; Emergency Provider Registered Nurse
DX: N30.01 Acute cystitis with hematuria (principal); N13.2 Hydronephrosis with renal and ureteral calculous obstruction; F17.210 Nicotine dependence, cigarettes, uncomplicated; Z87.442 Personal history of urinary calculi
CPT/HCPCS: 36415; 74177; 80053; 81001; 83605; 83690; 83735; 85025; 85610; 85730; 86140; 87086; 96365; 96374; 96375; 99284; A9270; J0696; J1885; J2405; J7030; Q9967